=== PATIENT | male | born 1960 | race Caucasian/White ===

== ENCOUNTER → 2016-11-12 | Outpatient (CLI) | payer BC | END | disposition home or self-care (01) | LOC: PCVCIMAG 07:47 | PROVIDERS: ATTEND Internal Medicine Cardiovascular Disease | DX: I65.23 Occlusion and stenosis of bilateral carotid arteries (principal); E04.1 Nontoxic single thyroid nodule; I25.10 Atherosclerotic heart disease of native coronary artery without angina pectoris; I35.0 Nonrheumatic aortic (valve) stenosis; R94.31 Abnormal electrocardiogram [ECG] [EKG]; R06.02 Shortness of breath | CPT/HCPCS: 76536; 78452; 93017; 93306; 93880; A9500 ==

== ENCOUNTER → 2018-10-01 | Outpatient (CLI) | payer BC ==
--- NOTE | 2018-10-01 14:41 | PCVCIMAG ---
APPROVED REPORT Study performed: 10/01/2018 13:04:30 EXAM: Comprehensive 2D, Doppler, and color-flow Echocardiogram Patient Location: Echo lab Room #: 2Status: routine BSA: 1.78 HR: 51 bpmBP: 124/62 mmHg Rhythm: Bradycardia Other Information Study Quality: Good Risk Factors: Cardiac Risk Factors: Hyperlipidemia Indications Aortic Valve Disease Mitral Valve Disease CVA/TIA 2D Dimensions IVSd: 13.32 (7-11mm)LVOT Diam: 23.00 (18-24mm) LVDd: 50.45 mm PWd: 15.24 (7-11mm)Ascending Ao: 29.19 (22-36mm) LVDs: 20.94 (25-40mm) Left Atrium: 43.79 (27-40mm) Aortic Root: 26.32 mm LV Single Plane 4CH: 73.62 % LV Single Plane 2CH: 74.48 % Biplane EF: 74.3 % Volumes Left Atrial Volume (Systole) Single Plane 4CH: 70.40 mLSingle Plane 2CH: 53.90 mL Biplane LA Volume: 62.00 mLLA ESV Index: 35.00 mL/m2 Aortic Valve AoV Peak Curly.: 2.45 m/s AO Peak Gr.: 22.48 mmHgLVOT Max P.42 mmHg AO Mean Gr.: 12.02 mmHgLVOT Mean P.69 mmHg AO V2 Mean: 1.59 m/sLVOT Max V: 1.51 m/s AO V2 VTI: 54.69 cmLVOT Mean V: 1.02 m/s BRENNA (VTI): 3.38 qs1MRFB V1 VTI: 39.42 cm BRENNA Vmax: 2.89 cm2 AI Vmax: 4.34 m/sSV (LVOT): 184.26 mL AI Haines: 2.38 m/s2 AI PHT: 580.54 ms Mitral Valve E/A Ratio: 1.3 MV Decel. Time: 181.28 ms MV E Max Curly.: 0.90 m/s MV A Curly.: 0.71 m/s IVRT: 147.64 ms TDI E/Lateral E': 18.00E/Medial E': 12.86 Medial E' Curly.: 0.07 m/s Lateral E' Curly.: 0.05 m/s Pulmonary Valve PV Peak Curly.: 0.97 m/sPV Peak Gr.: 3.77 mmHg Pulmonary Vein P Vein S: 0.58 m/sP Vein A: 0.36 m/s P Vein D: 0.47 m/sP Vein A Dur.: 161.5 msec P Vein S/D Ratio: 1.23 Tricuspid Valve TR Peak Curly.: 2.26 m/s TR Peak Gr.: 20.37 mmHg TV Vmax: 0.63 m/sPA Pressure: 27.00 mmHg Left Ventricle The left ventricle is normal size. There is normal LV segmental wall motion. Mild concentric left ventricular hypertrophy. Left ventricular systolic function is hyperdynamic. LVEF is >70%. Findings suggest the left atrial pressure is elevated. Right Ventricle The right ventricle is normal size. The right ventricular systolic function is normal. Atria Left atrium is mildly dilated. The right atrium size is normal. Aortic Valve Aortic valve is trileaflet. Aortic valve leaflets are sclerotic but open well. Moderate aortic regurgitation Increased velocity across the valve is seen; most likely due to increased flow due to moderate aortic insuffeciency. Mitral Valve Mitral valve leaflets are mildly thickened. Mild to moderate mitral regurgitation. No evidence of mitral valve stenosis. Tricuspid Valve The tricuspid valve is normal in structure. Mild tricuspid regurgitation with a PA pressure of 27 mmHg. No apparent pulmonary hypertension. Pulmonic Valve The pulmonary valve is normal in structure. There is no pulmonic valvular regurgitation. Great Vessels The aortic root is normal in size. The ascending aorta is normal in size. Aortic arch is normal in caliber. IVC is normal in size and collapses >50% with inspiration. Pericardium There is no pericardial effusion. There is no pleural effusion. <Conclusion> The left ventricle is normal size. Mild concentric left ventricular hypertrophy. Left ventricular systolic function is hyperdynamic. LVEF is >70%. Findings suggest the left atrial pressure is elevated. The right ventricle is normal size. Left atrium is mildly dilated. Aortic valve is trileaflet. Aortic valve leaflets are sclerotic but open well. Moderate aortic regurgitation Increased velocity across the valve is seen; most likely due to increased flow due to moderate aortic insuffeciency. Mild to moderate mitral regurgitation. Mild tricuspid regurgitation with a PA pressure of 27 mmHg. No apparent pulmonary hypertension. The aortic root is normal in size. There is no pericardial effusion.
== END | disposition home or self-care (01) ==
LOC: PCVCIMAG 12:54
PROVIDERS: ATTEND Internal Medicine Cardiovascular Disease
DX: I08.3 Combined rheumatic disorders of mitral, aortic and tricuspid valves (principal); E78.5 Hyperlipidemia, unspecified; R01.1 Cardiac murmur, unspecified; I63.9 Cerebral infarction, unspecified
CPT/HCPCS: 93306

== ENCOUNTER → 2019-05-21 | Outpatient (CLI) | payer BC ==
[~2019-05-21] MED LIST: AMINOPHYLLINE 250 MG/10 ML VIAL. ONE; REGADENOSON 0.4 MG/5 ML DISP.SYRIN. IV ONE
--- NOTE | 2019-05-21 15:08 | PCVCIMAG ---
APPROVED REPORT Imaging Protocol: Rest Tc-99m/Stress Tc-99m 1 day Study performed: 05/21/2019 10:08:47 Indication: CAD Patient Location: Out-Patient Stress Nurse: Celina Hughes RN AL Tech:Taylor ENEIDA DyerMT Ht: 5 ft 6 in Wt: 157 lbs BSA: 1.80 m2 HR: 59 bpm BP: 133/60 mmHg BMI: 25.3 Rhythm: Sinus Bradycardia Medical History Medical History: Hyperlipidemia, HTN, Diabetes, Former Smoker Medications: Losartan, Plavix, Atorvastatin Allergies: PCN Cardiac Risk Factors: Age Previous Cardiac Procedures: 2016 CVA Pretest Chest Pain Characteristics: No chest pain Exercise History: Sedentary Physical Disabilities: uses a walker Resting Data Rest SPECT myocardial perfusion imaging was performed in supine position 45 minutes following the intravenous injection of 10.3 mCi of Tc-99m Sestamibi. Time of rest injection: 0910 Date: 05/21/2019 Administration Route: IV Administration Site: Right Arm Pharmacologic Stress Pharmacologic stress test was performed by injecting Regadenoson 0.4 mg IV push over 10-15 seconds immediately followed by the intravenous injection of 31.7 mCi of Tc-99m Sestamibi. Time of stress injection: 1100 Date: 05/21/2019 Administration Route: IV Administration Site: Right Arm Gated Stress SPECT was performed 45 minutes after stress injection. The images were gated to evaluate regional wall motion and calculate left ventricular ejection fraction. Stress Test Details Stress Test: Pharmacologic stress testing performed using 0.4 mg of regadenoson per 5 mL given IV over 10 seconds. Reason for pharmacologic stress test: physical limitation, s/p stroke. Reversal agent Aminophyline 100 mg, given intravenously for vomiting. HRMax Heart Rate (APMHR): 163 bpm Resting HR: 59 bpmTarget HR (85% APMHR): 138 bpm Max HR Achieved: 89 bpm % of APMHR: 54 Recovery HR: 61 bpm BP Resting BP: 133/60 mmHg Max BP: 132/66 mmHg Recovery BP: 158/72 mmHg ECG Resting ECG: Sinus Bradycardia Stress ECG: Sinus Rhythm Arrhythmia: PVC's Recovery ECG: Sinus Rhythm Clinical Reason for Termination: Completed protocol Stress Symptoms: Dyspnea, Nausea, Emesis Symptoms resolved during recovery with aminophylline. Stress ECG Conclusion ECG: Non-ischemic Study Quality Study: Good Study Data Post stress, the left ventricular ejection was 63%.. SSS: 4 SRS: 1 SDS: 3 TID = 1.16. Perfusion Medium sized area of moderate reversible ischemia involving the inferoapical left ventricle consistent with a right coronary artery distribution. Wall Motion Normal left ventricular size and function with no regional wall motion abnormalities. 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 Normal left ventricular size and function with no regional wall motion abnormalities. Post stress, the left ventricular ejection was 63%. Interpreted by: Paul Laboy MD Electronically Approved: 05/21/2019 13:31:55 <Conclusion> ECG: Non-ischemic
== END | disposition home or self-care (01) ==
LOC: PCVCIMAG 08:41
PROVIDERS: ATTEND Internal Medicine Cardiovascular Disease
DX: I25.10 Atherosclerotic heart disease of native coronary artery without angina pectoris (principal); E11.9 Type 2 diabetes mellitus without complications; I10 Essential (primary) hypertension
CPT/HCPCS: 78452; 93017; A9500; J0280; J2785